=== PATIENT | male | born 1970 | race African-American/Black ===

== ENCOUNTER → 2020-01-13 | Outpatient (CLI) | payer OTHER ==
--- NOTE | 2020-01-13 23:18 | Diagnostic Imaging Report ---
MRI OF THE RIGHT WRIST AND HAND WITHOUT CONTRAST TECHNIQUE: Magnetic resonance imaging of the right wrist was performed WITHOUT injected contrast. MRI was performed on a none jake magnet. Magnetic resonance imaging of the RIGHT HAND was performed WITHOUT injected contrast. HISTORY: Right wrist and hand pain COMPARISON: None. IMPRESSION: Unremarkable examination. HISTORY: Contusion in the right wrist one month ago with persistent pain. COMPARISON: None. WRIST FINDINGS: BONES: There are degenerative subchondral cystic changes at the radial styloid, base of the fourth metacarpal and the trapezium. No focal infiltrative bone marrow replacement abnormality. No acute fracture or avascular necrosis. JOINT SPACES: Normal alignment. Normal articular cartilage . The joint fluid is physiologic. SYNOVIUM/BURSA: No synovial thickening. No joint effusion. No bursitis. No loose bodies. TRIANGULAR FIBROCARTILAGE COMPLEX: There is high-grade partial-thickness tear of the midsubstance of trying fibrocartilage. Remainder of the triangular fibrocartilage complex are intact. LIGAMENTS: Normal scapholunate and lunotriquetral ligaments. TENDONS: There is a focal tenosynovitis of the extensor digitorum. The tendons remain intact. Normal flexor tendons. CARPAL TUNNEL: Normal contents including the median nerve. Normal flexor retinaculum. GUYONS CANAL: Normal. MUSCULATURE: Normal muscle bulk. SOFT TISSUES: Normal soft tissues. Normal vascular flow voids. HAND FINDINGS: Bones: No focal or infiltrative bone marrow replacing abnormalities identified. No acute fracture or osteonecrosis. Joints: No focal lesions are seen. Soft Tissues: Unremarkable. IMPRESSION: 1. High-grade partial-thickness tear of the triangle fibrocartilage ligament. 2. Stenosing tenosynovitis of the extensor digitorum. 3. Mild degenerative changes of the carpometacarpal joint. Signed by: Adam Salmon MD on 01/13/2020 11:15 PM
== END ==
LOC: MRI 15:07
PROVIDERS: ATTEND Family Medicine
DX: S60.211D Contusion of right wrist, subsequent encounter (principal); S60.221D Contusion of right hand, subsequent encounter